=== PATIENT | male | born 1950 | race Caucasian/White ===

== ENCOUNTER 2017-07-22 19:42 | Emergency (ER) | payer BC ==
[2017-07-22 19:54] VITALS: BP 130/75
--- NOTE | 2017-07-22 20:41 | EDM.PDOC ---
ED HPI GENERAL MEDICAL PROBLEM - General Chief Complaint: Respiratory Problem Stated Complaint: COUGH/CONGESTION Time Seen by Provider: 07/22/17 20:20 Source of Information: Reports: Patient History Limitations: Reports: No Limitations - History of Present Illness INITIAL COMMENTS - FREE TEXT/NARRATIVE: 66 year old male presents for evaluation and treatment of cough and cold symptoms. Reports symptoms first started about 2 weeks ago and have steadily worsened. Reports symptoms of a productive cough, sore throat, congestion, neck discomfort and left eye drainage. Reports he is coughing up a thick yellowish, green mucus. Reports tenderness and swollen lymph nodes to the neck. Patient reports today he appreciated purulent drainage in the left eye. No fevers, nausea or vomiting. Currently on lupine for prostate cancer. Has not yet received a flu shot this year. Throat Pain Score (Numeric/FACES): 3 - Related Data Allergies Allergy/AdvReac Type Severity Reaction Status Date / Time No Known Allergies Allergy Verified 07/22/17 21:57 Home Meds: Home Meds Aspirin [Paolo Chewable] 81 mg PO DAILY 03/21/14 [History] Tiotropium [Spiriva] 18 mcg INH DAILY 03/21/14 [History] Doxycycline [Vibramycin] 100 mg PO BID #19 cap 07/22/17 [Rx] Erythromycin Base [Erythromycin 0.5% Ophth Oint] 3.5 gm EARLF TID #1 tube [Rx] Past Medical History Respiratory History: Reports: COPD Genitourinary History: Reports: Prostate Disorder Musculoskeletal History: Reports: Fracture, Other (See Below) Other Musculoskeletal History: fx wrist Oncologic (Cancer) History: Reports: Prostate - Past Surgical History HEENT Surgical History: Reports: Cataract Surgery GI Surgical History: Reports: Hernia, Inguinal Male Surgical History: Reports: Prostatectomy Musculoskeletal Surgical History: Reports: ORIF Social & Family History - Tobacco Use Smoking Status *Q: Former Smoker Years of Tobacco use: 40 Packs/Tins Daily: 0.3 Used Tobacco, but Quit: Yes Month Tobacco Last Used: 2 Second Hand Smoke Exposure: No - Caffeine Use Caffeine Use: Reports: None - Alcohol Use Days Per Week of Alcohol Use: 0 - Recreational Drug Use Recreational Drug Use: No - Living Situation & Occupation Living situation: Reports: , with Spouse Occupation: Retired ED ROS GENERAL - Review of Systems Review Of Systems: See Below Constitutional: Denies: Fever HEENT: Reports: Eye Discharge (left), Throat Pain Respiratory: Reports: Cough, Sputum GI/Abdominal: Denies: Nausea, Vomiting Hematologic/Lymphatic: Reports: Swollen Glands ED EXAM, GENERAL - Physical Exam Exam: See Below Exam Limited By: No Limitations General Appearance: Alert, WD/WN, No Apparent Distress Eye Exam: Left Eye: Conjunctival Injection, Other (prurlent discharge ) Ears: Normal External Exam, Normal Canal, Hearing Grossly Normal, Normal TMs Ear Exam: Bilateral Ear: Auricle Normal, Canal Normal, TM normal Nose: Normal Inspection Throat/Mouth: Normal Inspection, Normal Lips, Normal Voice, No Airway Compromise Head: Sinus Tenderness (left frontal and maxillary sinuses) Neck: Normal Inspection, Supple, Lymphadenopathy (L), Lymphadenopathy (R), Tender Lateral Respiratory/Chest: No Respiratory Distress, Lungs Clear, Normal Breath Sounds Cardiovascular: Normal Peripheral Pulses, Regular Rate, Rhythm, No Murmur Neurological: Alert, Oriented, Normal Cognition Psychiatric: Normal Affect, Normal Mood Skin Exam: Warm, Dry, Normal Color Course - Vital Signs Last Recorded V/S: Last Vital Signs Temp 36.8 C 07/22/17 19:49 Pulse 99 07/22/17 19:49 Resp 20 07/22/17 19:49 BP 130/75 07/22/17 19:49 Pulse Ox 94 L 07/22/17 19:49 - Orders/Labs/Meds Meds: Medications Discontinued Medications Generic Name Dose Route Start Last Admin Trade Name Raulq PRN Reason Stop Dose Admin Doxycycline Hyclate 100 mg 07/22/17 21:26 07/22/17 21:34 Vibramycin PO 07/22/17 21:27 100 mg ONETIME ONE Administration - Radiology Interpretation Free Text/Narrative:: chest xray shows an area of possible early pneumonia in the right lower lung. - Re-Assessments/Exams Free Text/Narrative Re-Assessment/Exam: 07/23/17 21:20 I re viewed the xray with the patient. I feel he likely has an early pneumonia and sinus infection. I will start him on doxycycline to cover for both. Eye drops to prevent the drainage from causing a conjunctivitis. Follow-up with PCP in 1-2 weeks for a recheck. Discharge instructions as documented. Departure - Departure Time of Disposition: 21:27 Disposition: Home, Self-Care 01 Condition: Fair Clinical Impression: Sinusitis - Discharge Information Prescriptions: Doxycycline [Vibramycin] 100 mg PO BID #19 cap Erythromycin Base [Erythromycin 0.5% Ophth Oint] 3.5 gm EARLF TID #1 tube Instructions: Sinusitis, Adult, [id number] Referrals: Daren Guthrie MD [Primary Care Provider] - Forms: ED Department Discharge Additional Instructions: Take the doxycycline as prescribed. 1 tab twice a day for 10 days. your First dose was given to and the ER tonight. start your prescription tomorrow. Erythromycin 1 cm ribbon to the left eye 3 times a day for 7 days. [id number] Tylenol or Motrin as needed for pain relief. may utilize over- the-counter the counter medications for cough and cold symptoms as needed. Follow up with your primary care provider within one to 2 weeks. Please return to the ER if your symptoms change or worsen.
[2017-07-22] MEDS ORDERED: Doxycycline 100 MG Cap PO ONE (21:26)
--- NOTE | 2017-07-24 10:25 | CR ---
Chest: Two views of the chest were obtained. Comparison: Prior chest x-ray of 03/21/14. Heart size appears within normal limits. Mild tortuosity of the thoracic aorta is seen. Slight nodularity is seen within the left midlung and right lower lung of the chest. Areas of what appears to be scarring are noted within both lower lungs. Lungs are hyperinflated compatible with emphysematous change. Bony structures show previous right shoulder surgery. Impression: 1. Equivocal nodules within both sides of the chest. Chest CT could be obtained to further evaluate. This CT can be performed without contrast. 2. Emphysematous change. Probable scarring within both lower lungs. Diagnostic code #9
== END 2017-07-22 21:39 | disposition home or self-care (01) ==
LOC: JD.ED 19:42
DX: J32.9 Chronic sinusitis, unspecified (principal); J44.9 Chronic obstructive pulmonary disease, unspecified; Z98.49 Cataract extraction status, unspecified eye; Z87.891 Personal history of nicotine dependence; Z98.890 Other specified postprocedural states; Z85.46 Personal history of malignant neoplasm of prostate; Z79.82 Long term (current) use of aspirin; Z79.899 Other long term (current) drug therapy
CPT/HCPCS: 71020; 99283; A9270